=== PATIENT | female | born 2005 | race Two or more races ===

== ENCOUNTER 2024-07-10 06:02 | Inpatient (IN) ==
[2024-07-10] MEDS ORDERED: NUBAIN INJ 20 MG AMP IVP PRN (06:53)
[2024-07-10] MEDS ORDERED: REGLAN INJ 10 MG VIAL IVP PRN (06:53)
[2024-07-10] MEDS ORDERED: ZOFRAN INJ 4 MG VIAL IVP PRN (06:53)
[2024-07-10] MEDS: D5 1/2 NS 1,000 ML 1,000 ML IV SCH (07:15)
[2024-07-10] MEDS: OXYTOCIN 20 UNIT/1,000 ML-NS 20 UNIT/1,000 ML PLAST..BAG IV PRN (07:55)
[2024-07-10] MEDS: FENTANYL VIAL INJ 100 mcg ONE ×2 (10:30→11:38)
[2024-07-10] MEDS: LR 1,000 ML IV 1,000 ML IV ONE ×2 (11:30→12:14)
[2024-07-10 12:05] LABS: APPEARANCE,URINE CLEAR (CLEAR); BILIRUBIN,URINE NEGATIVE (NEGATIVE); BLOOD/HEMOGLOBIN,URINE 2+ (NEGATIVE); COLOR,URINE YELLOW (YELLOW); GLUCOSE, URINE NEGATIVE (NEGATIVE); KETONES,URINE 3+ (NEGATIVE); LEUKOCYTE ESTERASE ,URINE NEGATIVE (NEGATIVE); NITRITES,URINE NEGATIVE (NEGATIVE); PROTEIN,URINE 1+ (NEGATIVE); UROBILINOGEN,URINE NORMAL (NORMAL)
[2024-07-10 12:11] LABS: BACTERIA,URINE NEGATIVE /HPF (NEGATIVE); SQUAMOUS EPITHELIAL CELL,UR RARE /HPF (NEGATIVE)
[2024-07-10] MEDS: NAROPIN EPIDURAL 0.2% 100 ML ONE (12:11)
[2024-07-10] MEDS ORDERED: MOTRIN TAB 800 MG PO PRN (14:36)
[2024-07-10] MEDS ORDERED: AMBIEN PO PRN (14:36)
[2024-07-10] MEDS: BETADINE SOLN ONE (14:48)
[2024-07-10] MEDS: PITOCIN IVP ONE (14:48)
[2024-07-10] MEDS: OXYTOCIN 20 UNIT/1,000 ML-NS 20 UNIT/1,000 ML PLAST..BAG IV SCH (14:51)
[2024-07-10] MEDS: MOTRIN TAB 800 MG PO PRN (15:51)
[2024-07-10] MEDS: DERMOPLAST PAIN RELIEF SPRAY TOP PRN (15:55)
[2024-07-11 06:26] LABS: HEMATOCRIT 22.6 % (36.0-47.0)
[2024-07-11 06:31] LABS: HEMOGLOBIN 7.4 g/dL (12.0-16.0)
[2024-07-11 08:19] VITALS: O2SAT 98
[2024-07-11] MEDS: PRENATAL PLUS PO SCH (08:41)
[2024-07-11] MEDS: NS 100 ML IV 100 ML with VENOFER 400 MG IV ONE (10:15)
[2024-07-11 13:26] VITALS: RESP 18
[2024-07-11 16:54] VITALS: BP 97/48; PULSE 75; TEMP 98.1
== END 2024-07-11 17:50 | disposition home or self-care (01) | DRG 807 ==
LOC: LD 06:02 → MED/SURG 14:37
PROVIDERS: ADMIT Obstetrics & Gynecology Obstetrics; ATTEND Obstetrics & Gynecology Obstetrics
DX: Z3A.39 39 weeks gestation of pregnancy; O80 Encounter for full-term uncomplicated delivery; Z37.0 Single live birth